=== PATIENT | female | born 2000 | race Caucasian/White ===

== ENCOUNTER 2020-03-02 23:57 | Emergency (ER) | payer OTHER ==
[~2020-03-02] VITALS: Ht 170.2 cm; Wt 82.0 kg
[2020-03-02 23:57] VITALS: BP 134/93
--- NOTE | 2020-03-03 00:18 | PHYS DOC ---
General Adult EDM: Chief Complaint: SKIN RASH/ABSCESS HPI: HPI: Patient is a 19-year-old female who presented to ER today for evaluation of skin irritation on the site of IV placement on her right forearm area. Patient was in the hospital at [facility] to have her baby delivered. Patient says there was an IV placed in her right forearm area, they gave her iron infusion through the IV, patient said the nurse did not flush the IV after the iron infusion.. The IV was removed yesterday, she was discharged home. Patient woke up this morning noticed some pain and swelling at the IV placement site so she came here for evaluation. Patient denies any fever, no chest pain, no trouble breathing. Review of Systems: Review of Systems: Constitutional: Denies fever or chills Eyes: Denies change in visual acuity HENT: Denies nasal congestion or sore throat Respiratory: Denies cough or shortness of breath Cardiovascular: Denies chest pain or edema GI: Denies abdominal pain, nausea, vomiting, bloody stools or diarrhea : Denies dysuria Musculoskeletal: Denies back pain or joint pain Integument: Denies rash Neurologic: Denies headache, focal weakness or sensory changes Endocrine: Denies polyuria or polydipsia Lymphatic: Denies swollen glands Psychiatric: Denies depression or anxiety Heart Score: Risk Factors: Risk Factors: DM, Current or recent (<one month) smoker, HTN, HLP, family history of CAD, obesity. Risk Scores: Score 0 - 3: 2.5% MACE over next 6 weeks - Discharge Home Score 4 - 6: 20.3% MACE over next 6 weeks - Admit for Clinical Observation Score 7 - 10: 72.7% MACE over next 6 weeks - Early Invasive Strategies Physical Exam: PE: Constitutional: Well developed, well nourished, no acute distress, non-toxic appearance. [] HENT: Normocephalic, atraumatic, bilateral external ears normal, oropharynx moist, no oral exudates, nose normal. [] Eyes: PERRLA, EOMI, conjunctiva normal, no discharge. [] Neck: Normal range of motion, no tenderness, supple, no stridor. [] Cardiovascular:Heart rate regular rhythm, no murmur [] Lungs & Thorax: Bilateral breath sounds clear to auscultation [] Abdomen: Bowel sounds normal, soft, no tenderness, no masses, no pulsatile masses. [] Skin: Warm, dry, there is some swelling, erythema, and tenderness to palpation with some induration at the IV site on the dorsal surface of the distal right forearm. There is no neurological deficits. Patient has good radial and ulnar pulses.. Capillary refill was less than 2-second on her finger on the right side. Back: No tenderness, no CVA tenderness. [] Extremities: No tenderness, no cyanosis, no clubbing, ROM intact, no edema. [] Neurologic: Alert and oriented X 3, normal motor function, normal sensory function, no focal deficits noted. [] Psychologic: Affect normal, judgement normal, mood normal. [] EKG: EKG: [] Radiology/Procedures: Radiology/Procedures: [] Course & Med Decision Making: Course & Med Decision Making Pertinent Labs and Imaging studies reviewed. (See chart for details) Patient is a 19-year-old female who was evaluated in ER due to irritation at the IV placement site. Area appear to be inflamed, consistent with superficial thrombophlebitis. Patient was advised to play heat on the area as needed, no further work-up needed at this time. Patient was discharged home in stable condition. [employer] Disclaimer: [employer] Disclaimer: This electronic medical record was generated, in whole or in part, using a voice recognition dictation system. Departure Departure: Impression: Primary Impression: Superficial thrombophlebitis Additional Impression: IV infiltrate Disposition: HOME/RESIDENCE PRIOR TO ADM Condition: STABLE Patient Instructions: Infiltration, IV, [id number] Additional Instructions: APPLY HEAT ON THE TENDER/SWOLLEN AREA Justification of Admission: Justification of Admission: Justification of Admission Dx: N/A CHITRA HOLDER DO Mar 03, 2020 00:18
== END 2020-03-03 00:20 | disposition home or self-care (01) ==
LOC: ER 23:57
DX: O87.0 Superficial thrombophlebitis in the puerperium (principal); T80.89XA Other complications following infusion, transfusion and therapeutic injection, initial encounter; Z98.890 Other specified postprocedural states
CPT/HCPCS: 99281